=== PATIENT | female | born 1995 | race Two or more races ===

== ENCOUNTER 2024-08-06 11:58 | Outpatient (CLI) | payer OTHER | END 2024-08-06 12:58 | disposition home or self-care (01) | LOC: PRENATAL 11:58 | PROVIDERS: ATTEND Obstetrics & Gynecology Maternal & Fetal Medicine | DX: O36.80X0 Pregnancy with inconclusive fetal viability, not applicable or unspecified (principal); Z36.82 Encounter for antenatal screening for nuchal translucency; Z14.8 Genetic carrier of other disease; Z3A.12 12 weeks gestation of pregnancy ==

== ENCOUNTER 2024-09-28 07:30 | Outpatient (CLI) | payer OTHER | END 2024-09-28 08:18 | disposition home or self-care (01) | LOC: PRENATAL 07:30 | PROVIDERS: ATTEND Obstetrics & Gynecology Maternal & Fetal Medicine | DX: O44.00 Complete placenta previa NOS or without hemorrhage, unspecified trimester (principal); Z3A.19 19 weeks gestation of pregnancy ==

== ENCOUNTER → 2024-12-25 08:10 | Outpatient (CLI) | payer OTHER | END | disposition home or self-care (01) | LOC: PRENATAL 08:10 | PROVIDERS: ATTEND Student in an Organized Health Care Education/Training Program | DX: O26.849 Uterine size-date discrepancy, unspecified trimester (principal); O36.8199 Decreased fetal movements, unspecified trimester, other fetus; O99.019 Anemia complicating pregnancy, unspecified trimester; Z3A.33 33 weeks gestation of pregnancy ==

== ENCOUNTER 2025-01-04 08:27 | Outpatient (CLI) | payer OTHER | END 2025-01-04 08:28 | disposition home or self-care (01) | LOC: PRENATAL 08:27 | PROVIDERS: ATTEND Obstetrics & Gynecology Maternal & Fetal Medicine | DX: Z76.1 Encounter for health supervision and care of foundling (principal) ==

== ENCOUNTER 2025-02-08 14:15 | Inpatient (IN) | payer OTHER ==
[~2025-02-08] VITALS: Ht 152.4 cm; Wt 56.7 kg
[2025-02-18] MEDS ORDERED: RINGERS SOLUTION,LACTATED 1,000 ML IV SCH (06:30)
[2025-02-18] MEDS ORDERED: MISOPROSTOL 25 MCG/4 ML GEL.W.APPL VAG NR (06:30)
[2025-02-18 07:10] VITALS: BP 117/70
[2025-02-18] MEDS ORDERED: PRENATA CHEWAB1 EACH PO (07:33)
[2025-02-18 07:59] LABS: BASO % 0.2 % (0.1-1.2); EOS # 0.10 (0.04-0.54); EOS % 1.0 % (0.7-7.0); LYMPH # 1.55 (1.18-3.74); LYMPH % 14.9 % (19.3-53.1); MEAN PLATELET VOLUME 10.80 fl (9.4-12.4); MONO # 0.78 (0.24-0.82); MONO % 7.5 % (4.7-12.5); NEUT # 7.85 (1.56-6.13); NEUT % 75.4 % (34.0-71.1); RED CELL DISTRIBUTION WIDTH 16.2 % (11.6-14.4)
[2025-02-18 08:02] LABS: URINE APPEARANCE Clear; URINE BILIRRUBIN Negative (NEGATIVE); URINE BLOOD Negative; URINE COLOR Yellow; URINE GLUCOSE Negative (NEGATIVE); URINE KETONE Negative (NEGATIVE); URINE LEUKOCYTE Small; URINE NITRATE Negative; URINE PROTEIN Negative (NEGATIVE); URINE UROBILINOGEN 0.2 E.U./dl
[2025-02-18 08:05] LABS: URINE BACTERIA 2844.0 uL (0.0-1933); URINE CAST 0.58 uL (0.0-1.40); URINE EPITHELIAL CELLS 34.1 uL (0.0-38.8); URINE RBC 3.0 uL (0.0-20.8); URINE WBC 161.9 uL (0.0-23.2)
[2025-02-18 08:37] LABS: INR 0.95
[2025-02-18 08:46] LABS: ALT/SGPT 18.0 U/L (12-78); AST/SGOT 15.0 U/L (15-37); BILIRUBIN TOTAL 0.28 mg/dL (0.3-1.2); BUN CREA RATIO 15.0 (7.0-25.0); CREATININE SERUM 0.4 mg/dL (0.55-1.02); GFR 186.17; GLOBULINA 3.4 G/DL (2.4-3.5); GLUCOSE FASTING 72.0 mg/dL (65-100); OSMOLALITY SERUM 274.0 MOSM/KG (275-295)
[2025-02-18 11:21] VITALS: BP 118/73
[2025-02-18 15:23] VITALS: BP 124/54
[2025-02-18] MEDS ORDERED: MORPHINE SULFATE 4 MG/ML VIAL IV PRN (16:15)
[2025-02-18] MEDS ORDERED: OXYTOCIN 500 ML IV SCH (16:15)
[2025-02-18 19:02] VITALS: BP 123/71
[2025-02-18] MEDS ORDERED: POVIDONE-IODINE SCRUB 118 ML BOTT TOP ONE (21:00)
[2025-02-18 23:10] VITALS: BP 129/64
[2025-02-19] VITALS (7 sets, daily range): BP systolic 104–137; BP diastolic 53–66
[2025-02-19] MEDS ORDERED: ACETAMINOPHEN 500 MG GEL..CAP PO PRN (10:00)
[2025-02-19] MEDS ORDERED: BENZOCAINE/MENTHOL 90 ML BOTTLE TOP PRN (10:00)
[2025-02-19] MEDS ORDERED: ERYTHROMYCIN BASE OPHT 1GM EACH TUBE OP ONE (10:30)
[2025-02-19] MEDS ORDERED: CHLORHEXIDINE GLUCONATE 120 ML BOTTLE TOP SCH (10:30)
[2025-02-19] MEDS ORDERED: OXYTOCIN 1,000 ML IV SCH (10:30)
[2025-02-19] MEDS ORDERED: LIDOCAINE HCL 1% 10ML VIAL IJ ONE (10:30)
[2025-02-19 20:57] LABS: BASO % 0.2 % (0.1-1.2); EOS # 0.00 (0.04-0.54); EOS % 0.0 % (0.7-7.0); LYMPH # 1.91 (1.18-3.74); LYMPH % 6.9 % (19.3-53.1); MEAN PLATELET VOLUME 11.10 fl (9.4-12.4); MONO # 1.87 (0.24-0.82); MONO % 6.7 % (4.7-12.5); NEUT # 23.83 (1.56-6.13); NEUT % 85.7 % (34.0-71.1); RED CELL DISTRIBUTION WIDTH 16.2 % (11.6-14.4)
[2025-02-20 01:32] VITALS: BP 100/87
[2025-02-20] MEDS ORDERED: PNV,CALCIUM 72/IRON/FOLIC ACID 1 TAB TABLET PO SCH (09:00)
[2025-02-21 01:30] VITALS: BP 99/67
[2025-02-21 09:29] VITALS: BP 111/63
[2025-02-21] MEDS ORDERED: DOCUSATE SODIUM 100MG CAP PO SCH (21:00)
[2025-02-22] VITALS: BP 105/68
[2025-02-22 08:53] VITALS: BP 115/68
[2025-02-22 16:49] VITALS: BP 120/70
== END 2025-02-22 18:16 | disposition home or self-care (01) | DRG 807 ==
LOC: LDR 02-18 06:23 → OB/GYN 02-19 08:34
PROVIDERS: ADMIT Obstetrics & Gynecology; ATTEND Obstetrics & Gynecology
PROC: 3E033VJ Introduction of Other Hormone into Peripheral Vein, Percutaneous Approach (ICD-10-PCS; 2025-02-18)
PROC: 3E0P7VZ Introduction of Hormone into Female Reproductive, Via Natural or Artificial Opening (ICD-10-PCS; 2025-02-18)
PROC: 4A1HXCZ Monitoring of Products of Conception, Cardiac Rate, External Approach (ICD-10-PCS; 2025-02-18)
PROC: 10E0XZZ Delivery of Products of Conception, External Approach (ICD-10-PCS; principal; 2025-02-19)
PROC: 0W8NXZZ Division of Female Perineum, External Approach (ICD-10-PCS; 2025-02-19)
DX: O80 Encounter for full-term uncomplicated delivery (principal); Z37.0 Single live birth; Z3A.39 39 weeks gestation of pregnancy